=== PATIENT | male | born 1960 ===

== ENCOUNTER 2016-08-10 09:44 | Outpatient (CLI) | payer OTHER ==
--- NOTE | 2016-08-10 12:21 | Cat Scan Report ---
CT ABDOMEN AND PELVIS WITH CONTRAST: 08/10/16 09:44:00 CLINICAL: Right lower quadrant abdominal pain. COMPARISON: None. TECHNIQUE: Volumetric acquisition and 1.25 millimeter scan reconstructions after the uneventful intravenous injection of 100 cc Omnipaque 300. Consent was obtained prior to the administration of contrast. Oral contrast was also given. FINDINGS: Abdomen: Clear lung bases.Normal liver, bile ducts and gallbladder. Normal stomach, duodenum and pancreas. The spleen is normal size and measures 9.6 cm in length. A 4 cm benign cyst of the inferior lateral spleen. The adrenal glands and kidneys are normal. The renal collecting systems and ureters are nondilated. Normal aorta and inferior vena cava. The small bowel is normal. Normal terminal ileum. Several lymph nodes are identified in the right lower quadrant in the vicinity of the terminal ileum. The largest measures 1 cm. Normal ascending, transverse and descending colon. There appears to be a very short small appendix.Moderate diverticulosis of the distal descending colon and and proximal sigmoid colon. No signs of diverticulitis. No mass, lymphadenopathy or ascites.No pneumoperitoneum. Pelvis: Normal urinary bladder.Normal prostate and seminal vesicles. Normal rectum. Mild sigmoid diverticulosis.. Bone windows demonstrate no bone lesion. IMPRESSION:1. A benign 4 cm splenic cyst. 2. Several prominent lymph nodes in the right lower quadrant suggest the possibility of mesenteric adenitis as an etiology for right lower quadrant pain. 3. No appendicitis. 4. Sigmoid diverticulosis but no diverticulitis.
== END 2016-08-10 09:45 | disposition home or self-care (01) ==
LOC: SPVIMAG 09:44
PROVIDERS: ATTEND Internal Medicine Gastroenterology
DX: D73.4 Cyst of spleen (principal); K57.30 Diverticulosis of large intestine without perforation or abscess without bleeding
CPT/HCPCS: 74177; Q9967